=== PATIENT | female | born 1955 | race Caucasian/White ===

== ENCOUNTER 2021-11-30 07:29 | Day surgery (SDC) | payer MEDICAID ==
[~2021-11-30] VITALS: Ht 149.9 cm; Wt 55.3 kg
[2021-11-30] MEDS ORDERED: fentaNYL CITRATE/PF 100 MCG/2 ML AMP ONE (08:27)
[2021-11-30] MEDS ORDERED: MIDAZOLAM HCL 5 MG/5 ML VIAL ONE (08:28)
[2021-11-30 11:42] VITALS: BP_SYST 137
== END 2021-11-30 10:00 | disposition home or self-care (01) ==
LOC: SDS 07:29 → SMU 07:32 → SDS 10:00
PROVIDERS: ATTEND Internal Medicine Gastroenterology
DX: Z12.11 Encounter for screening for malignant neoplasm of colon (principal); K63.5 Polyp of colon; K64.9 Unspecified hemorrhoids
CPT/HCPCS: 36415; 45380; 45385; 88305; 99152; 99153; U0003; G0378; J2250; J3010